=== PATIENT | female | born 1955 | race Caucasian/White ===

== ENCOUNTER → 2018-11-14 | Outpatient (CLI) | payer BC, SELFPAY ==
[2018-08-17 10:14] VITALS: BMI 39.4
--- NOTE | 2018-11-14 12:19 | US_ITS ---
STUDY: SUPERFICIAL ULTRASOUND - LEFT VENTRAL FOREARM. REASON FOR EXAM: Female, 63 years old. Palpable lump/swelling left ventral forearm. Fell approximately one month ago. TECHNIQUE: A superficial ultrasound was performed with real-time and static hsu-scale imaging. COMPARISON: None. FINDINGS: No apparent mass or hematoma or fluid collection. Normal ultrasound appearance of the subcutaneous soft tissues and visualized deeper fascial planes. US/Ext Non Vasc Limited/Soft Tiss IMPRESSION: No acute or concerning findings. No etiology for the patient's symptoms identified. Electronically Signed: Jair Corral, at 14:14 EDT Tel , Service support ,
--- NOTE | 2018-11-14 12:45 | VDLE_ITS ---
Reason For Study: Edema LLE RIGHT LEFT CFV is compressible, spontaneous, phasic, GSV is normal. competent and demonstrates normal CFV is compressible, spontaneous, phasic, augmentation. competent, and demonstrates normal Procedure augmentation. Exam performed in department. FV is compressible, spontaneous, phasic, A preliminary report was called and/or faxed competent and demonstrates normal to Gu[employer] Tran. augmentation. POP V is compressible, spontaneous, phasic, competent and demonstrates normal augmentation. T/P Trunk is compressible. PTV is compressible. LT PerV is compressible. Difficult to visualize Lt prox/mid PTV/PeroV due to patient body habitus. Interpretation Summary Deep veins of the left lower extremity are patent and compressible segmentally. There is no evidence of left lower extremity deep vein thrombosis. Valvular competence appears intact within the proximal deep venous system on the left . The left great saphenous vein appears patent and compressible segmentally. The left posterior tibial vein and peroneal vein were not well visualized. Ordering Physician: Gucci Tran Referring Physician: Mateo Philippe Performed By: Mariluz Nunes, AZEEM, RVT
== END | disposition home or self-care (01) ==
LOC: US 12:17
DX: R22.32 Localized swelling, mass and lump, left upper limb (principal); R60.0 Localized edema
CPT/HCPCS: 76882; 93971